=== PATIENT | female | born 1975 | race Hispanic/Latino ===

== ENCOUNTER 2020-09-20 08:37 | Outpatient (CLI) | payer BC ==
--- NOTE | 2020-09-20 12:55 | Ultrasound Report ---
PELVIC ULTRASOUND HISTORY: Pelvic pain. FINDINGS: The uterus measures 7.6 x 3.7 x 3.8 cm. The endometrial stripe measures 6.1 mm. Right ovary is not visualized. Left ovary measures 4.5 x 3.3 x 3.1 cm and contains a 3.6 cm cyst. The left ovary demonstrate flow. Negative for adnexal mass or fluid. IMPRESSION: 1. 3.6 cm left ovarian cyst. 2. Right ovary not visualized. Signer Name: Vladimir Ackerman MD Signed: 09/20/2020 12:50 PM Workstation Name: [id number]
--- NOTE | 2020-09-20 13:12 | Fluoroscopy Report ---
Fluoroscopy cystogram voiding HISTORY: Chronic cystitis without hematuria COMPARISON: None. FINDINGS: Plant Maintenance Technician film of the abdomen demonstrates bilateral tubal ligation devices in place and glass edger ior lumbar fusion changes in the lower lumbar spine. 280 cc of Cystografin was administered to Zazueta catheter. There is normal filling of the bladder. No vesicoureteral reflux was witnessed during bladder filling or during voiding. During the voiding phase of this exam, when the patient strained there appears to be a small cystocel e at the base of the bladder. The urethra is normal. A small post void residual was noted. IMPRESSION: No evidence for vesicoureteral reflux. Question a small cystocele during voiding. Small post void residual. Signer Name: Luis Sky Jr, MD Signed: 09/20/2020 1:07 PM Workstation Name: [id number]
== END 2020-09-20 08:38 | disposition home or self-care (01) ==
LOC: US 08:37
PROVIDERS: ATTEND Urology
DX: N83.202 Unspecified ovarian cyst, left side (principal); N30.10 Interstitial cystitis (chronic) without hematuria
CPT/HCPCS: 51600; 51702; 74455; 76856; Q9958